=== PATIENT | female | born 1980 | race Caucasian/White ===

== ENCOUNTER → 2016-11-27 | Outpatient (CLI) | payer MEDICARE, MEDICAID | PROVIDERS: ATTEND Nurse Practitioner Family | DX: F31.60 Bipolar disorder, current episode mixed, unspecified (principal); F41.8 Other specified anxiety disorders | CPT/HCPCS: 90833; G0463 ==

== ENCOUNTER → 2017-01-19 | Outpatient (CLI) | payer MEDICARE, MEDICAID | PROVIDERS: ATTEND Nurse Practitioner Family | DX: F31.60 Bipolar disorder, current episode mixed, unspecified (principal); F43.10 Post-traumatic stress disorder, unspecified; F41.8 Other specified anxiety disorders | CPT/HCPCS: 99214 ==

== ENCOUNTER 2017-09-11 13:03 | Emergency (ER) | payer MEDICARE, MEDICAID ==
--- NOTE | 2017-09-11 13:18 | EDM.PDOC ---
ED HPI GENERAL MEDICAL PROBLEM - General Chief Complaint: Laceration Stated Complaint: CUT ON R EYE Time Seen by Provider: 09/11/17 13:05 - History of Present Illness INITIAL COMMENTS - FREE TEXT/NARRATIVE: HISTORY AND PHYSICAL: History of present illness: Patient 37-year-old female presents with concern of injury to right face in the form of a laceration above her right eye there was no other significant head trauma trauma or other concern tetanus status is pending. Review of systems: As per history of present illness and below otherwise all systems reviewed and negative. Past medical history: As per history of present illness and as reviewed below otherwise noncontributory. Surgical history: As per history of present illness and as reviewed below otherwise noncontributory. Social history: No reported history of drug or alcohol abuse. Family history: As per history of present illness and as reviewed below otherwise noncontributory. Physical exam: HEENT: Moderate depth 1.5 centimeter laceration above her right eye noted good hemostasis no step-off no depression, normocephalic, pupils reactive, negative for conjunctival pallor or scleral icterus, mucous membranes moist, throat clear , neck supple, nontender, trachea midline. Lungs: Clear to auscultation, breath sounds equal bilaterally, chest nontender. Heart: S1S2, regular, negative for clicks, rubs, or JVD. Abdomen: Soft, nondistended, nontender. Negative for masses or hepatosplenomegaly. Negative for costovertebral tenderness. Pelvis: Stable nontender. Genitourinary: Deferred. Rectal: Deferred. Extremities: Atraumatic, negative for cords or calf pain. Neurovascular unremarkable. Neuro: Awake, alert, oriented. Cranial nerves II through XII unremarkable. Cerebellum unremarkable. Motor and sensory unremarkable throughout. Exam nonfocal. Diagnostics: None Therapeutics: Patient was irrigated closed with 0.9 normal saline closed with Dermabond glue Impression: #1 right facial laceration Definitive disposition and diagnosis as appropriate pending reevaluation and review of above. - Related Data Allergies Allergy/AdvReac Type Severity Reaction Status Date / Time No Known Allergies Allergy Verified 09/11/17 13:10 Home Meds: Home Meds Benztropine Mesylate 1 tab PO BID 09/17/15 [History] ClonazePAM [KlonoPIN] 1 tab PO DAILY 09/17/15 [History] Divalproex Sodium [Divalproex Sodium ER] 1 tab PO BID 09/17/15 [History] Levomilnacipran Hydrochloride [Fetzima] 1 cap PO DAILY 09/17/15 [History] Magnesium 1 tab PO DAILY 09/17/15 [History] Multivitamin with Folic Acid [One Daily Multivitamin Tablet] 1 tab PO DAILY [History] QUEtiapine [SEROquel] 1 tab PO DAILY 09/17/15 [History] Riboflavin [Vitamin B-2] 1 tab PO BID 09/17/15 [History] hydrOXYzine HCl [hydrOXYzine] 1 tab PO DAILY 09/17/15 [History] Desvenlafaxine [Desvenlafaxine ER] 09/11/17 [History] Escitalopram Oxalate [Lexapro] 20 mg PO 09/11/17 [History] Temazepam 15 mg PO DAILY 09/11/17 [History] traZODone HCl [Trazodone HCl] 100 mg PO DAILY 09/11/17 [History] Past Medical History Cardiovascular History: Reports: Prior Cardiac Arrest Neurological History: Reports: Other (See Below) Other Neuro History: traumatic brain injury Psychiatric History: Reports: Anxiety, Depression - Past Surgical History GI Surgical History: Reports: Cholecystectomy Social & Family History - Family History Family Medical History: Noncontributory - Tobacco Use Smoking Status *Q: Never Smoker Second Hand Smoke Exposure: No - Recreational Drug Use Recreational Drug Use: No ED ROS GENERAL - Review of Systems Review Of Systems: ROS reveals no pertinent complaints other than HPI. ED EXAM, SKIN/RASH Exam: See Below (See dictation) Departure - Departure Time of Disposition: 13:18 Disposition: Home, Self-Care 01 Condition: Good Clinical Impression: Facial laceration - Discharge Information Referrals: Harjinder Triplett MD [Primary Care Provider] - Additional Instructions: The following information is given to patients seen in the emergency department who are being discharged to home. This information is to outline your options for follow-up care. We provide all patients seen in our emergency department with a follow-up referral. The need for follow-up, as well as the timing and circumstances, are variable depending upon the specifics of your emergency department visit. If you don't have a primary care physician on staff, we will provide you with a referral. We always advise you to contact your personal physician following an emergency department visit to inform them of the circumstance of the visit and for follow-up with them and/or the need for any referrals to a consulting specialist. The emergency department will also refer you to a specialist when appropriate. This referral assures that you have the opportunity for followup care with a specialist. All of these measure are taken in an effort to provide you with optimal care, which includes your followup. Under all circumstances we always encourage you to contact your private physician who remains a resource for coordinating your care. When calling for followup care, please make the office aware that this follow-up is from your recent emergency room visit. If for any reason you are refused follow-up, please contact the [facility] emergency department at and asked to speak to the emergency department charge nurse. Follow-up primary medical doctor 1-2 days return as needed as discussed
[2017-09-11 13:19] VITALS: BP 128/79
[2017-09-11] MEDS ORDERED: Octyl 2-Cyanoacrylate 1 APPLIC TUBE TOP ONE (13:19)
== END 2017-09-11 13:39 | disposition home or self-care (01) ==
LOC: MW.ED 13:03
DX: S01.81XA Laceration without foreign body of other part of head, initial encounter (principal); F32.9 Major depressive disorder, single episode, unspecified; Z79.899 Other long term (current) drug therapy; W45.8XXA Other foreign body or object entering through skin, initial encounter
CPT/HCPCS: 12011; 99282; A9270

== ENCOUNTER 2019-03-11 11:06 | Emergency (ER) | payer MEDICARE, MEDICAID ==
[2019-03-11] MEDS ORDERED: Diphtheria,Pertussis(Acell),Tetanus Vaccine 0.5 ML Syringe IM ONE (11:17)
[2019-03-11 11:20] VITALS: BP 116/73
[2019-03-11] MEDS ORDERED: Octyl 2-Cyanoacrylate 1 Tube TOP ONE (11:28)
--- NOTE | 2019-03-11 11:46 | EDM.PDOC ---
ED HPI GENERAL MEDICAL PROBLEM - General Chief Complaint: Laceration Stated Complaint: LACERATION Time Seen by Provider: 03/11/19 11:43 Source of Information: Reports: Patient - History of Present Illness INITIAL COMMENTS - FREE TEXT/NARRATIVE: HISTORY AND PHYSICAL: History of present illness: [Patient tripped and fell forward striking her left brow on a sink in the bathroom, there is no loss of consciousness, she generally has a care provider with her however she had to go to the bathroom and elected to try to go on her own and had a little stumble and fall no other complaint for range of motion of all joints no tenderness she has a small 1.5 cm laceration partial-thickness on the left brow no gaping wound No fever nausea vomiting chills sweats no headache dizziness palpitation no bowel or urine symptoms History of TBI ] Review of systems: As per history of present illness and below otherwise all systems reviewed and negative. Past medical history: As per history of present illness and as reviewed below otherwise noncontributory. Surgical history: As per history of present illness and as reviewed below otherwise noncontributory. Social history: No reported history of drug or alcohol abuse. Family history: As per history of present illness and as reviewed below otherwise noncontributory. Physical exam: HEENT: Atraumatic, normocephalic, pupils reactive, negative for conjunctival pallor or scleral icterus, mucous membranes moist, throat clear, neck supple, nontender, trachea midline. Lungs: Clear to auscultation, breath sounds equal bilaterally, chest nontender. Heart: S1S2, regular, negative for clicks, rubs, or JVD. Abdomen: Soft, nondistended, nontender. Negative for masses or hepatosplenomegaly. Negative for costovertebral tenderness. Pelvis: Stable nontender. Genitourinary: Deferred. Rectal: Deferred. Extremities: Atraumatic, negative for cords or calf pain. Neurovascular unremarkable. Neuro: Awake, alert, oriented. Cranial nerves II through XII unremarkable. Cerebellum unremarkable. Motor and sensory unremarkable throughout. Exam nonfocal. Skin as per history of present illness otherwise unremarkable Diagnostics: [Clinical ] Therapeutics: [Status updated 1 cleansed and explored Dermabond applied ] Impression: [ laceration 1.5 cm, linear, simple -no sutures required Dermabond applied] Definitive disposition and diagnosis as appropriate pending reevaluation and review of above. Left Face/Facial Pain Score (Numeric/FACES): 3 - Related Data Allergies Allergy/AdvReac Type Severity Reaction Status Date / Time No Known Allergies Allergy Verified 03/11/19 11:14 Home Meds: Home Meds Benztropine Mesylate 1 tab PO BID 09/17/15 [History] ClonazePAM [KlonoPIN] 1 tab PO DAILY 09/17/15 [History] Divalproex Sodium [Divalproex Sodium ER] 1 tab PO BID 09/17/15 [History] Levomilnacipran Hydrochloride [Fetzima] 1 cap PO DAILY 09/17/15 [History] Magnesium 1 tab PO DAILY 09/17/15 [History] Multivitamin with Folic Acid [One Daily Multivitamin Tablet] 1 tab PO DAILY [History] QUEtiapine [SEROquel] 100 mg PO DAILY 09/17/15 [History] Riboflavin [Vitamin B-2] 1 tab PO BID 09/17/15 [History] hydrOXYzine HCl [hydrOXYzine] 1 tab PO DAILY 09/17/15 [History] Desvenlafaxine [Desvenlafaxine ER] 100 mg PO ASDIRECTED 09/11/17 [History] Escitalopram Oxalate [Lexapro] 20 mg PO ASDIRECTED 09/11/17 [History] Temazepam 15 mg PO DAILY 09/11/17 [History] traZODone HCl [Trazodone HCl] 100 mg PO DAILY 09/11/17 [History] Past Medical History HEENT History: Reports: None Cardiovascular History: Reports: Prior Cardiac Arrest Respiratory History: Reports: None Gastrointestinal History: Reports: None Genitourinary History: Reports: None [employer]LECT[employer]MENT [employer]PA[employer]ER History: Reports: None Musculoskeletal History: Reports: None Neurological History: Reports: Other (See Below) Other Neuro History: traumatic brain injury Psychiatric History: Reports: Anxiety, Depression Endocrine/Metabolic History: Reports: None Hematologic History: Reports: None Immunologic History: Reports: None Oncologic (Cancer) History: Reports: None Dermatologic History: Reports: None - Infectious Disease History Infectious Disease History: Reports: Chicken Pox - Past Surgical History Head Surgeries/Procedures: Reports: None HEENT Surgical History: Reports: None Cardiovascular Surgical History: Reports: None Respiratory Surgical History: Reports: None GI Surgical History: Reports: Cholecystectomy Female Surgical History: Reports: None Endocrine Surgical History: Reports: None Neurological Surgical History: Reports: None Musculoskeletal Surgical History: Reports: None Oncologic Surgical History: Reports: None Dermatological Surgical History: Reports: None Social & Family History - Family History Family Medical History: Noncontributory - Tobacco Use Smoking Status *Q: Never Smoker Second Hand Smoke Exposure: No - Caffeine Use Caffeine Use: Reports: Coffee - Recreational Drug Use Recreational Drug Use: No ED ROS GENERAL - Review of Systems Review Of Systems: See Below ED EXAM, SKIN/RASH Exam: See Below Course - Vital Signs Last Recorded V/S: Last Vital Signs Temp 96.4 F 03/11/19 11:17 Pulse 89 03/11/19 11:17 Resp 16 03/11/19 11:17 BP 116/73 03/11/19 11:17 Pulse Ox 96 03/11/19 11:17 - Orders/Labs/Meds Orders: Active Orders 24 hr Category Date Time Status Vaccines to be Administered [RC] PER UNIT ROUTINE Care 03/11/19 11:17 Active Meds: Medications Discontinued Medications Generic Name Dose Route Start Last Admin Trade Name Kortney PRN Reason Stop Dose Admin Diphtheria/Tetanus/Acell Pertussis 0.5 ml 03/11/19 11:17 03/11/19 11:25 Adacel IM 03/11/19 11:18 0.5 ml .ONCE ONE Administration Octyl Cyanoacrylate 1 applic 03/11/19 11:28 03/11/19 11:31 Dermabond Advance TOP 03/11/19 11:29 1 applic ONETIME ONE Administration Departure - Departure Time of Disposition: 11:45 Disposition: Home, Self-Care 01 Condition: Good Clinical Impression: Laceration - Discharge Information Referrals: PCP,None [Primary Care Provider] - Additional Instructions: Standard wound care instructions [] Standard head injury precaution Return if symptoms persist or worsen or new concerning symptoms develop Follow-up with primary care in 2 weeks sooner as needed [facility] [address] [place] [id number] The following information is given to patients seen in the emergency department who are being discharged to home. This information is to outline your options for follow-up care. We provide all patients seen in our emergency department with a follow-up referral. The need for follow-up, as well as the timing and circumstances, are variable depending upon the specifics of your emergency department visit. If you don't have a primary care physician on staff, we will provide you with a referral. We always advise you to contact your personal physician following an emergency department visit to inform them of the circumstance of the visit and for follow-up with them and/or the need for any referrals to a consulting specialist. The emergency department will also refer you to a specialist when appropriate. This referral assures that you have the opportunity for follow-up care with a specialist. All of these measure are taken in an effort to provide you with optimal care, which includes your follow-up. Under all circumstances we always encourage you to contact your private physician who remains a resource for coordinating your care. When calling for follow-up care, please make the office aware that this follow-up is from your recent emergency room visit. If for any reason you are refused follow-up, please contact the [facility] emergency department at and asked to speak to the emergency department charge nurse. - My Orders Last 24 Hours: My Active Orders 03/11/19 11:17 Vaccines to be Administered [RC] PER UNIT ROUTINE - Assessment/Plan Last 24 Hours: My Active Orders 03/11/19 11:17 Vaccines to be Administered [RC] PER UNIT ROUTINE
== END 2019-03-11 11:55 | disposition home or self-care (01) ==
LOC: MW.ED 11:06
DX: S01.112A Laceration without foreign body of left eyelid and periocular area, initial encounter (principal); W22.8XXA Striking against or struck by other objects, initial encounter; Y92.002 Bathroom of unspecified non-institutional (private) residence as the place of occurrence of the external cause; Z79.899 Other long term (current) drug therapy
CPT/HCPCS: 12011; 90471; 90715; 99282; A9270

== ENCOUNTER 2020-10-03 17:00 | Emergency (ER) | payer MEDICARE, MEDICAID ==
[2020-10-03] MEDS ORDERED: Sodium Chloride 0.9% 10 ML Syringe FLUSH PRN (17:09)
[2020-10-03] MEDS ORDERED: Sodium Chloride 0.9% 2.5 ML Syringe FLUSH PRN (17:09)
[2020-10-03] MEDS ORDERED: Sodium Chloride 0.9% 1,000 ML IV ONE ×2 (17:17→18:06)
[2020-10-03] MEDS ORDERED: Succinylcholine 200 MG/10 ML MDV IV STA (17:18)
[2020-10-03] MEDS ORDERED: Propofol 200 MG/20 ML SDV IVPUSH ONE (17:29)
[2020-10-03] MEDS ORDERED: propofoL 100 ML IV SCH (17:30)
--- NOTE | 2020-10-03 17:40 | EDM.PDOC ---
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 Patient caregiver states that patient had been going to the bathroom multiple times a day and she was not sure if she had diarrhea or increased urination or fluid is gone because she was confused. Patient did have a fall on one of the trips to the bathroom and hit her head. Patient was then sat down and she started banging her head against the wall which she has done before in the past for unknown reasons per the mother and caregiver. Patient had a seizure that was witnessed and family states that was her upper body was shaking the last for 30 seconds and resolved. EMS arrived and picked patient up and in transport patient another seizure and vomited. When patient arrived patient has been vomiting coming from the mouth was not protecting her airway and was intubated for airway protection. We did not start sedation and patient did have a period where she woke up and started try to grab and was sedated with propofol. (Bull Aranda) - Related Data Allergies Allergy/AdvReac Type Severity Reaction Status Date / Time No Known Allergies Allergy Verified 10/03/20 17:55 Home Meds: Home Meds Benztropine Mesylate 1 tab PO BID 09/17/15 [History] ClonazePAM [KlonoPIN] 1 tab PO DAILY 09/17/15 [History] Divalproex Sodium [Divalproex Sodium ER] 1 tab PO BID 09/17/15 [History] Levomilnacipran HCl [Fetzima] 1 cap PO DAILY 09/17/15 [History] Magnesium 1 tab PO DAILY 09/17/15 [History] Multivitamin with Folic Acid [One Daily Multivitamin Tablet] 1 tab PO DAILY 09/17/15 [History] QUEtiapine [SEROquel] 100 mg PO DAILY 09/17/15 [History] Riboflavin (Vitamin B2) [Vitamin B-2] 1 tab PO BID 09/17/15 [History] hydrOXYzine HCL [hydrOXYzine] 1 tab PO DAILY 09/17/15 [History] Desvenlafaxine [Desvenlafaxine ER] 100 mg PO ASDIRECTED 09/11/17 [History] Escitalopram Oxalate [Lexapro] 20 mg PO ASDIRECTED 09/11/17 [History] Temazepam 15 mg PO DAILY 09/11/17 [History] traZODone HCl [Trazodone HCl] 100 mg PO DAILY 09/11/17 [History] Past Medical History HEENT History: Reports: None Cardiovascular History: Reports: Prior Cardiac Arrest Respiratory History: Reports: None Gastrointestinal History: Reports: None Genitourinary History: Reports: None [employer] History: Reports: None Musculoskeletal History: Reports: None Neurological History: Reports: Other (See Below) Other Neuro History: traumatic brain injury Psychiatric History: Reports: Anxiety, Depression Endocrine/Metabolic History: Reports: None Hematologic History: Reports: None Immunologic History: Reports: None Oncologic (Cancer) History: Reports: None Dermatologic History: Reports: None - Infectious Disease History Infectious Disease History: Reports: Chicken Pox - Past Surgical History Head Surgeries/Procedures: Reports: None HEENT Surgical History: Reports: None Cardiovascular Surgical History: Reports: None Respiratory Surgical History: Reports: None GI Surgical History: Reports: Cholecystectomy Female Surgical History: Reports: None Endocrine Surgical History: Reports: None Neurological Surgical History: Reports: None Musculoskeletal Surgical History: Reports: None Oncologic Surgical History: Reports: None Dermatological Surgical History: Reports: None Social & Family History - Family History Family Medical History: No Pertinent Family History - Caffeine Use Caffeine Use: Reports: Coffee Review of Systems - Review of Systems Review Of Systems: Unable To Obtain Reason Not Obtained: Seizure and intubated ED EXAM, GENERAL - Physical Exam Exam: See Below Exam Limited By: Other (intubated) General Appearance: Alert, Severe Distress Eye Exam: Bilateral Eye: PERRL Respiratory/Chest: Lungs Clear, Normal Breath Sounds, Other (intubated ) Cardiovascular: Regular Rate, Rhythm GI/Abdominal: Normal Bowel Sounds, Soft Neurological: Unresponsive, Other (did move UE after intubation ) ED TRAUMA PROCEDURES - Endotracheal Intubation Time of Intubation: 17:06 ET Intubation Indication: Airway Protection Preparation: Suction, Balloon Tested, BVM Set Up Pre-Oxygenation: Assisted with BVM Anesthesia Meds: Succinylcholine Placement: Orotracheal Cords Visualized: Yes ETT Size In mm: 7.5 Number of Attempts: 1 Confirmed By: CO2 Indicator, Bilateral Breath Sounds Tube Secured By: By Provider #1 Interpretation EKG Date: 10/03/20 Time: 15:36 Rhythm: NSR ST-T: Normal Course - Vital Signs Text/Narrative:: My partner has arranged transfer of this patient to [place]. Ambulance has not arrived yet patient began to glaser on the ventilator. She however was not responsive to deep painful stimuli represented by sternal pressure. Her blood pressure was 98. [place] drip was diminished. Rate of fluids was increased. Rocuronium was repeated. Rocuronium orders given to the paramedics in case he wakes up within an hour before they get the [place]. (Kwabena Denise) Last Recorded V/S: Last Vital Signs Temp 36.0 C L 10/03/20 17:02 Pulse 65 10/03/20 18:12 Resp 26 H 10/03/20 18:12 BP 98/53 L 10/03/20 18:12 Pulse Ox 95 10/03/20 18:12 - Orders/Labs/Meds Orders: Active Orders 24 hr Category Date Time Status Cardiac Monitoring [RC] . DIRECTED Care 10/03/20 17:09 Active EKG Documentation Completion [RC] STAT Care 10/03/20 17:07 Active Gastrointestinal Tube Mgmt [RC] ASDIRECTED Care 10/03/20 17:18 Active Insert Urinary Catheter [OM.PC] Q24H Care 10/03/20 17:30 Ordered Urinary Catheter Assessment [RC] ASDIRECTED Care 10/03/20 17:18 Active CORONAVIRUS COVID-19 PRADEEP [MOLEC] Stat Lab 10/03/20 18:00 Received CULTURE BLOOD [BC] Stat Lab 10/03/20 18:33 Results CULTURE BLOOD [BC] Stat Lab 10/03/20 18:40 Results LACTATE WITH REFLEX [BG] Stat Lab 10/03/20 19:05 Received OSMOLALITY - SERUM [REF] Stat Lab 10/03/20 17:05 Received OSMOLALITY - URINE Stat Lab 10/03/20 17:41 Received VALPROIC ACID [REF] Stat Lab 10/03/20 17:05 Received Sodium Chloride 0.9% [Normal Saline] 1,000 ml Med 10/03/20 18:06 Active IV .Bolus Sodium Chloride 0.9% [Saline Flush] Med 10/03/20 17:09 Active 10 ml FLUSH ASDIRECTED PRN Sodium Chloride 0.9% [Saline Flush] Med 10/03/20 17:09 Active 2.5 ml FLUSH ASDIRECTED PRN propofoL [Diprivan 100 ML] 100 ml Med 10/03/20 17:30 Active IV TITRATE Blood Culture x2 Reflex Set [OM.PC] Stat Ot 10/03/20 17:46 Ordered Nasogastric Orogastric Tube Insertion [OM.PC] Stat Ot 10/03/20 17:18 Ordered Saline Lock Insert [OM.PC] Stat Ot 10/03/20 17:09 Ordered Medication Orders Propofol (Diprivan 100 Ml) 100 mls @ 18.744 mls/hr IV TITRATE TODD; Protocol Last Admin: 10/03/20 17:20 Dose: 40 mcg/kg/min, 18.744 mls/hr Documented by: CAROLE Sodium Chloride (Normal Saline) 1,000 mls @ 150 mls/hr IV .Bolus ONE Stop: 10/04/20 00:45 Last Admin: 10/03/20 18:07 Dose: 150 mls/hr Documented by: ROSAMAC Sodium Chloride (Saline Flush) 10 ml FLUSH ASDIRECTED PRN PRN Reason: Keep Vein Open Last Admin: 10/03/20 17:57 Dose: 10 ml Documented by: CAROLE Sodium Chloride (Saline Flush) 2.5 ml FLUSH ASDIRECTED PRN PRN Reason: Keep Vein Open Last Admin: 10/03/20 17:57 Dose: 2.5 ml Documented by: CAROLE Labs: Laboratory Tests 10/03/20 10/03/20 10/03/20 Range/Units 17:05 17:05 17:05 WBC 16.67 H (4.0-11.0) K/uL RBC 3.97 L (4.30-5.90) M/uL Hgb 11.8 L (12.0-16.0) g/dL Hct 32.5 L (36.0-46.0) % MCV 81.9 (80.0-98.0) fL MCH 29.7 (27.0-32.0) pg MCHC 36.3 (31.0-37.0) g/dL RDW Std Deviation 34.9 (28.0-62.0) fl RDW Coeff of Serene 12 (11.0-15.0) % Plt Count 242 (150-400) K/uL MPV 11.20 (7.40-12.00) fL Neut % (Auto) 82.5 H (48.0-80.0) % Lymph % (Auto) 11.3 L (16.0-40.0) % [place] % (Auto) 5.6 (0.0-15.0) % Eos % (Auto) 0.5 (0.0-7.0) % Baso % (Auto) 0.1 (0.0-1.5) % Neut # (Auto) 13.8 H (1.4-5.7) K/uL Lymph # (Auto) 1.9 (0.6-2.4) K/uL [place] # (Auto) 0.9 H (0.0-0.8) K/uL Eos # (Auto) 0.1 (0.0-0.7) K/uL Baso # (Auto) 0.0 (0.0-0.1) K/uL Nucleated RBC % 0.0 /100WBC Nucleated RBCs # 0 K/uL INR 1.09 Sodium 103 L* (136-145) mmol/L Potassium 2.0 L* (3.5-5.1) mmol/L Chloride 68 L (98-107) mmol/L Carbon Dioxide 15.4 L (21.0-32.0) mmol/L BUN 2 L (7.0-18.0) mg/dL Creatinine 0.8 (0.6-1.0) mg/dL Est Cr Clr Drug Dosing TNP Estimated GFR (MDRD) > 60.0 ml/min Glucose 173 H (74-106) mg/dL Uric Acid (2.6-7.2) mg/dL Calcium 6.9 L (8.5-10.1) mg/dL Magnesium (1.8-2.4) mg/dL Total Bilirubin 0.4 (0.2-1.0) mg/dL AST 43 H (15-37) IU/L ALT 32 (14-63) IU/L Alkaline Phosphatase 41 L (46-116) U/L Total Protein 6.2 L (6.4-8.2) g/dL Albumin 3.4 (3.4-5.0) g/dL Globulin 2.8 (2.6-4.0) g/dL Albumin/Globulin Ratio 1.2 (0.9-1.6) TSH 3rd Generation 4.06 H (0.36-3.74) uIU/mL Urine Color Urine Appearance Urine pH (5.0-8.0) Ur Specific Gilbert (1.001-1.035) Urine Protein (NEGATIVE) mg/dL Urine Glucose (UA) (NEGATIVE) mg/dL Urine Ketones (NEGATIVE) mg/dL Urine Occult Blood (NEGATIVE) Urine Nitrite (NEGATIVE) Urine Bilirubin (NEGATIVE) Urine Urobilinogen (<2.0) EU/dL Ur Leukocyte Esterase (NEGATIVE) Ur Random Creatinine mg/dL Ur Random Sodium (40.0-220.0) mmol/L Urine HCG, Qual (NEGATIVE) Salicylates 1.1 (0-20) mg/dL Urine Opiates Screen (NEGATIVE) Ur Oxycodone Screen (NEGATIVE) Urine Methadone Screen (NEGATIVE) Acetaminophen <2.0 ug/mL Ur Barbiturates Screen (NEGATIVE) Ur Phencyclidine Scrn (NEGATIVE) Ur Amphetamine Screen (NEGATIVE) U Methamphetamines Scrn (NEGATIVE) U Benzodiazepines Scrn (NEGATIVE) U Cocaine Metab Screen (NEGATIVE) U Marijuana (THC) Screen (NEGATIVE) 10/03/20 10/03/20 10/03/20 Range/Units 17:05 17:05 17:41 WBC (4.0-11.0) K/uL RBC (4.30-5.90) M/uL Hgb (12.0-16.0) g/dL Hct (36.0-46.0) % MCV (80.0-98.0) fL MCH (27.0-32.0) pg MCHC (31.0-37.0) g/dL RDW Std Deviation (28.0-62.0) fl RDW Coeff of Serene (11.0-15.0) % Plt Count (150-400) K/uL MPV (7.40-12.00) fL Neut % (Auto) (48.0-80.0) % Lymph % (Auto) (16.0-40.0) % [place] % (Auto) (0.0-15.0) % Eos % (Auto) (0.0-7.0) % Baso % (Auto) (0.0-1.5) % Neut # (Auto) (1.4-5.7) K/uL Lymph # (Auto) (0.6-2.4) K/uL [place] # (Auto) (0.0-0.8) K/uL Eos # (Auto) (0.0-0.7) K/uL Baso # (Auto) (0.0-0.1) K/uL Nucleated RBC % /100WBC Nucleated RBCs # K/uL INR Sodium (136-145) mmol/L Potassium (3.5-5.1) mmol/L Chloride (98-107) mmol/L Carbon Dioxide (21.0-32.0) mmol/L BUN (7.0-18.0) mg/dL Creatinine (0.6-1.0) mg/dL Est Cr Clr Drug Dosing Estimated GFR (MDRD) ml/min Glucose (74-106) mg/dL Uric Acid 1.9 L (2.6-7.2) mg/dL Calcium (8.5-10.1) mg/dL Magnesium 1.1 L (1.8-2.4) mg/dL Total Bilirubin (0.2-1.0) mg/dL AST (15-37) IU/L ALT (14-63) IU/L Alkaline Phosphatase (46-116) U/L Total Protein (6.4-8.2) g/dL Albumin (3.4-5.0) g/dL Globulin (2.6-4.0) g/dL Albumin/Globulin Ratio (0.9-1.6) TSH 3rd Generation (0.36-3.74) uIU/mL Urine Color YELLOW Urine Appearance CLEAR Urine pH 5.5 (5.0-8.0) Ur Specific Gilbert 1.015 (1.001-1.035) Urine Protein NEGATIVE (NEGATIVE) mg/dL Urine Glucose (UA) 250 H (NEGATIVE) mg/dL Urine Ketones TRACE H (NEGATIVE) mg/dL Urine Occult Blood NEGATIVE (NEGATIVE) Urine Nitrite NEGATIVE (NEGATIVE) Urine Bilirubin NEGATIVE (NEGATIVE) Urine Urobilinogen 0.2 (<2.0) EU/dL Ur Leukocyte Esterase NEGATIVE (NEGATIVE) Ur Random Creatinine mg/dL Ur Random Sodium (40.0-220.0) mmol/L Urine HCG, Qual (NEGATIVE) Salicylates (0-20) mg/dL Urine Opiates Screen (NEGATIVE) Ur Oxycodone Screen (NEGATIVE) Urine Methadone Screen (NEGATIVE) Acetaminophen ug/mL Ur Barbiturates Screen (NEGATIVE) Ur Phencyclidine Scrn (NEGATIVE) Ur Amphetamine Screen (NEGATIVE) U Methamphetamines Scrn (NEGATIVE) U Benzodiazepines Scrn (NEGATIVE) U Cocaine Metab Screen (NEGATIVE) U Marijuana (THC) Screen (NEGATIVE) 10/03/20 10/03/20 10/03/20 Range/Units 17:41 17:41 17:41 WBC (4.0-11.0) K/uL RBC (4.30-5.90) M/uL Hgb (12.0-16.0) g/dL Hct (36.0-46.0) % MCV (80.0-98.0) fL MCH (27.0-32.0) pg MCHC (31.0-37.0) g/dL RDW Std Deviation (28.0-62.0) fl RDW Coeff of Serene (11.0-15.0) % Plt Count (150-400) K/uL MPV (7.40-12.00) fL Neut % (Auto) (48.0-80.0) % Lymph % (Auto) (16.0-40.0) % [place] % (Auto) (0.0-15.0) % Eos % (Auto) (0.0-7.0) % Baso % (Auto) (0.0-1.5) % Neut # (Auto) (1.4-5.7) K/uL Lymph # (Auto) (0.6-2.4) K/uL [place] # (Auto) (0.0-0.8) K/uL Eos # (Auto) (0.0-0.7) K/uL Baso # (Auto) (0.0-0.1) K/uL Nucleated RBC % /100WBC Nucleated RBCs # K/uL INR Sodium (136-145) mmol/L Potassium (3.5-5.1) mmol/L Chloride (98-107) mmol/L Carbon Dioxide (21.0-32.0) mmol/L BUN (7.0-18.0) mg/dL Creatinine (0.6-1.0) mg/dL Est Cr Clr Drug Dosing Estimated GFR (MDRD) ml/min Glucose (74-106) mg/dL Uric Acid (2.6-7.2) mg/dL Calcium (8.5-10.1) mg/dL Magnesium (1.8-2.4) mg/dL Total Bilirubin (0.2-1.0) mg/dL AST (15-37) IU/L ALT (14-63) IU/L Alkaline Phosphatase (46-116) U/L Total Protein (6.4-8.2) g/dL Albumin (3.4-5.0) g/dL Globulin (2.6-4.0) g/dL Albumin/Globulin Ratio (0.9-1.6) TSH 3rd Generation (0.36-3.74) uIU/mL Urine Color Urine Appearance Urine pH (5.0-8.0) Ur Specific Gilbert (1.001-1.035) Urine Protein (NEGATIVE) mg/dL Urine Glucose (UA) (NEGATIVE) mg/dL Urine Ketones (NEGATIVE) mg/dL Urine Occult Blood (NEGATIVE) Urine Nitrite (NEGATIVE) Urine Bilirubin (NEGATIVE) Urine Urobilinogen (<2.0) EU/dL Ur Leukocyte Esterase (NEGATIVE) Ur Random Creatinine 9.1 mg/dL Ur Random Sodium 43.0 (40.0-220.0) mmol/L Urine HCG, Qual NEGATIVE (NEGATIVE) Salicylates (0-20) mg/dL Urine Opiates Screen NEGATIVE (NEGATIVE) Ur Oxycodone Screen NEGATIVE (NEGATIVE) Urine Methadone Screen NEGATIVE (NEGATIVE) Acetaminophen ug/mL Ur Barbiturates Screen NEGATIVE (NEGATIVE) Ur Phencyclidine Scrn NEGATIVE (NEGATIVE) Ur Amphetamine Screen NEGATIVE (NEGATIVE) U Methamphetamines Scrn NEGATIVE (NEGATIVE) U Benzodiazepines Scrn POSITIVE (NEGATIVE) U Cocaine Metab Screen NEGATIVE (NEGATIVE) U Marijuana (THC) Screen NEGATIVE (NEGATIVE) Meds: Medications Generic Name Dose Route Start Last Admin Trade Name Freq PRN Reason Stop Dose Admin Propofol 100 mls @ 18.744 mls/hr 10/03/20 17:30 10/03/20 17:20 Diprivan 100 Ml IV 40 mcg/kg/min TITRATE TODD 18.744 mls/hr Administration Protocol 40 MCG/KG/MIN Sodium Chloride 1,000 mls @ 150 mls/hr 10/03/20 18:06 10/03/20 18:07 Normal Saline IV 10/04/20 00:45 150 mls/hr .Bolus ONE Administration Sodium Chloride 10 ml 10/03/20 17:09 10/03/20 17:57 Saline Flush FLUSH 10 ml ASDIRECTED PRN Administration Keep Vein Open Sodium Chloride 2.5 ml 10/03/20 17:09 10/03/20 17:57 Saline Flush FLUSH 2.5 ml ASDIRECTED PRN Administration Keep Vein Open Discontinued Medications Generic Name Dose Route Start Last Admin Trade Name Freq PRN Reason Stop Dose Admin Sodium Chloride 1,000 mls @ 999 mls/hr 10/03/20 17:17 10/03/20 17:56 Normal Saline IV 10/03/20 18:17 999 mls/hr STAT ONE Administration Sodium Chloride 150 mls @ 7.5 mls/min 10/03/20 18:00 Sodium Chloride 3% IV ASDIRECTED TODD Propofol 70 mg 10/03/20 17:29 10/03/20 18:02 Diprivan 20 Ml IVPUSH 10/03/20 17:30 70 mg ONETIME ONE Administration Rocuronium [place] 40 mg 10/03/20 19:08 Zemuron IVPUSH 10/03/20 19:09 ONETIME ONE Succinylcholine Chloride 100 mg 10/03/20 17:18 10/03/20 18:03 Quelicin IV 10/03/20 17:19 100 mg NOW STA Administration - Re-Assessments/Exams Free Text/Narrative Re-Assessment/Exam: 10/03/20 18:07 Patient was found to have a sodium of 103. She is already at 1 L fluids. Patient is currently not seizing and would not continue any more fluids just give 150 mL/h of normal saline. Patient CT scan also shows diffuse cerebral edema at the speaking to radiology she believes this could be due to the low sodium. We call [facility] and got a septations from the ER physician Dr. Mccallum. We also spoke to the critical care physician about how to proceed with the fluid and he agrees that if patient is nauseated and just give normal saline at 150 mL/h and they will draw the labs when she arrives it [place]. (Bull Aranda) Departure - Departure Time of Disposition: 18:08 Condition: Good - Discharge Information *PRESCRIPTION DRUG MONITORING PROGRAM REVIEWED*: Not Applicable *COPY OF PRESCRIPTION DRUG MONITORING REPORT IN PATIENT ANASTACIO: Not Applicable - Departure Disposition: DC/Tfer to [facility] 02 Clinical Impression: Hyponatremia - Discharge Information Referrals: Harjinder Triplett MD [Primary Care Provider] - Forms: ED Department Discharge Critical Care Note - Critical Care Note Total Time (mins): 50 - Critical Care Note Comments: Critical Care Procedure Note Authorized and Performed by: Dr. Aranda Total critical care time: Approximately Due to a high probability of clinically significant, life threatening deterioration, the patient required my highest level of preparedness to intervene emergently and I personally spent this critical care time directly and personally managing the patient. This critical care time included obtaining a history; examining the patient; pulse oximetry; ordering and review of studies; arranging urgent treatment with development of a management plan; evaluation of patient's response to treatment; frequent reassessment; and, discussions with other providers. This critical care time was performed to assess and manage the high probability of imminent, life-threatening deterioration that could result in multi-organ failure. It was exclusive of separately billable procedures and treating other patients and teaching time. (Bull Aranda) Sepsis Event Note (ED) - Focused Exam Vital Signs: Vital Signs Temp Pulse Resp BP Pulse Ox 10/03/20 18:12 65 26 H 98/53 L 95 10/03/20 17:02 36.0 C L 82 18 136/63 94 L - Assessment/Plan Assessment:: Patient is a 40-year-old female who presents today by EMS after having 2 seizures in 1 with EMS. Also recently started on Depakote patient was unresponsive and vomiting and was intubated for airway protection. Patient had a head injury today is. Will obtain CT head labs and reassess. (Bull Aranda)
[2020-10-03 17:44] LABS: ACETAMINOPHEN <2.0 ug/mL; BLOOD UREA NITROGEN,BUN 2 mg/dL (7.0-18.0); CARBON DIOXIDE,CO2 15.4 mmol/L (21.0-32.0); CHLORIDE,CL 68 mmol/L (98-107); GLUCOSE RANDOM 173 mg/dL (74-106)
[2020-10-03 17:47] LABS: SODIUM,NA 103 mmol/L (136-145)
--- NOTE | 2020-10-03 17:54 | CR ---
Indication: Gastric tube placement Technique: Chest 1 view Comparison: N September 17, 2015 one Findings/Impression: A gastric tube tip courses below the level of the left hemidiaphragm. Endotracheal tube tip terminates 1.6 cm above the level of the joan. Linear atelectasis in the right mid and lower lung field. The left lung is clear. No pneumothorax or effusion. Dictated by Jenna Mendez MD @ Oct 03 2020 5:50PM Signed by Dr. Jenna Mendez @ Oct 03 2020 5:52PM
--- NOTE | 2020-10-03 18:00 | CT ---
INDICATION: Altered level of awareness, seizure, hyponatremia TECHNIQUE: CT head without contrast. COMPARISON: None FINDINGS: There is some loss of garcia-white junction and sulcal effacement concerning for diffuse cerebral hypoxia. No intracranial hemorrhage, infarction, midline shift, or extra-axial fluid collection. Ventricular size is normal in appearance. No acute osseous abnormality. Paranasal sinuses and mastoid air cells are normally aerated. IMPRESSION: Findings concerning for diffuse cerebral edema possibly associated to hyponatremia. Findings discussed with Dr. Aranda at 5:55 p.m. on October 03, 2020. Please note that all CT scans at this facility use dose modulation, iterative reconstruction, and/or weight-based dosing when appropriate to reduce radiation dose to as low as reasonably achievable. Dictated by Jenna Mendez MD @ Oct 03 2020 5:52PM Signed by Dr. Jenna Mendez @ Oct 03 2020 5:59PM
[2020-10-03] MEDS ORDERED: Rocuronium 100 MG/10 ML Syringe IVPUSH ONE (19:08)
[2020-10-03 19:29] VITALS: BP 106/61; PULSE 69
== END 2020-10-03 19:37 ==
LOC: MW.ED 17:03
DX: S00.81XA Abrasion of other part of head, initial encounter (principal); E87.1 Hypo-osmolality and hyponatremia; Z20.822 Contact with and (suspected) exposure to COVID-19; W22.8XXA Striking against or struck by other objects, initial encounter; Y92.002 Bathroom of unspecified non-institutional (private) residence as the place of occurrence of the external cause
CPT/HCPCS: 31500; 36415; 43752; 51702; 70450; 71045; 80053; 80143; 80164; 80305; 80307; 81003; 81025; 82570; 83605; 83735; 83930; 83935; 84300; 84443; 84550; 85025; 85610; 87040; 93005; 96365; 96366; 96375; 99285; J0330; J2704; J7030; U0002; 93010; 99291

== ENCOUNTER 2022-09-15 12:27 | Emergency (ER) | payer MEDICARE, MEDICAID ==
[2022-09-15 13:29] VITALS: BP 166/79; PULSE 99
[2022-09-15] MEDS ORDERED: LORazepam 1 MG Tab PO ONE (15:28)
== END 2022-09-15 15:46 | disposition home or self-care (01) ==
LOC: MW.ED 12:27
DX: G47.00 Insomnia, unspecified (principal); Z79.899 Other long term (current) drug therapy; Z90.49 Acquired absence of other specified parts of digestive tract
CPT/HCPCS: 99283; A9270